=== PATIENT | female | born 1980 | race Caucasian/White ===

== ENCOUNTER 2017-04-15 14:11 | Emergency (ER) | payer OTHER ==
[2017-04-15 14:35] VITALS: BP 99/62
--- NOTE | 2017-04-15 15:26 | UC ---
Lower Extremity/Ankle HPI - HPI Summary HPI Summary: 37 y/o female presents to the urgent care presents to the urgent care c/o Left lateral foot pain s/p falling at work at 1200pm. Pt states she stood up from her desk and she twisted her foot and fell. Pain is 6/10 w/ walking and 2/10 at rest. Mild swelling. She has not taking anything for pain. LMP: 04/11/2017 still with her period today. Pt denies fever, numbness or tingling sensation over her RT foot, SOB, chest pain, N/V/D. - History of Current Complaint Chief Complaint: UCLowerExtremity Stated Complaint: S/P FALL LEFT ANKLE/FOOT W/C Time Seen by Provider: 04/15/17 15:17 Hx Obtained From: Patient Hx Last Menstrual Period: 04/11/17 ?: No Onset/Duration: Sudden Onset, Lasting Hours - 1200N, Still Present Severity Initially: Moderate Severity Currently: Moderate Pain Intensity: 6 - w/ movement Pain Scale Used: 0-10 Numeric Aggravating Factor(s): Standing, Ambulation Alleviating Factor(s): Rest Able to Bear Weight: Yes Related History: Occupational Injury - it happened at work - Risk Factors Gout Risk Factors: Negative DVT Risk Factors: Negative Septic Arthritis Risk Factor: Negative - Allergies/Home Medications Allergies/Adverse Reactions: Allergies Allergy/AdvReac Type Severity Reaction Status Date / Time Penicillins Allergy Severe Anaphylatic Verified 04/15/17 14:35 Shock Home Medications: Home Medications Methylphenidate TAB* [Ritalin TAB*] 54 mg PO DAILY 04/15/17 [History Confirmed 04/15/17] PMH/Surg Hx/FS Hx/Imm Hx Previously Healthy: Yes - Surgical History Surgical History: Yes Surgery Procedure, Year, and Place: APPENDECTOMY. - Family History Known Family History: Positive: Cardiac Disease, Hypertension Family History: kidney stones - Social History Occupation: Employed Full-time Lives: With Family Alcohol Use: None Substance Use Type: None Smoking Status (MU): Never Smoked Tobacco Review of Systems Constitutional: Negative Skin: Negative Eyes: Negative ENT: Negative Respiratory: Negative Cardiovascular: Negative Gastrointestinal: Negative Genitourinary: Negative Motor: Negative Neurovascular: Negative Musculoskeletal: Other: - LF foot pain s/p fall Neurological: Negative Psychological: Negative All Other Systems Reviewed And Are Negative: Yes Physical Exam Triage Information Reviewed: Yes Appearance: Well-Appearing, No Pain Distress, Well-Nourished, Thin Vital Signs: Initial Vital Signs Temp 98.0 F 04/15/17 14:27 Pulse 98 04/15/17 14:27 Resp 12 04/15/17 14:27 BP 99/62 04/15/17 14:27 Vital Signs Reviewed: Yes Eye Exam: Normal Eyes: Positive: Conjunctiva Clear - PERRLA, EOMI ENT Exam: Normal ENT: Positive: Normal ENT inspection, Hearing grossly normal, Pharynx normal, TMs normal Neck exam: Normal Neck: Positive: Supple, Nontender, No Lymphadenopathy Respiratory Exam: Normal Respiratory: Positive: Chest non-tender, Lungs clear, Normal breath sounds Cardiovascular Exam: Normal Cardiovascular: Positive: RRR, No Murmur, Pulses Normal, Brisk Capillary Refill Abdominal Exam: Normal Abdomen Description: Positive: Nontender, No Organomegaly, Soft. Negative: CVA Tenderness (R), CVA Tenderness (L) Bowel Sounds: Positive: Present Musculoskeletal Exam: Normal Musculoskeletal: Positive: Strength Intact, ROM Intact, Other: Neurological Exam: Normal Neurological: Positive: Other: - LF foot: Pt is able to bear weight and ambulate with pain. The L foot is without obvious asymmetry or deformity when compared to the R Foot. Pt can flex/ext, invert/laurence. No obvious surface trauma, ecchymosis,mild soft tissue swelling with tenderdess to palaption over the proximal lateral side LF foot. anterior talofibular ligament, posterior talofibular ligament , calcaneofibular ligament . Nontender and without swelling. Positive capillary refill, sensation intact. Positive reflexes Psychological Exam: Normal Skin Exam: Normal Lower Extremity Course/Dx - Course Course Of Treatment: 37 y/o female presents to the urgent care presents to the urgent care c/o Left lateral foot pain s/p falling at work at 1200pm. Pt states she stood up from her desk and she twisted her foot and fell. Pain is 6/10 w/ walking and 2/10 at rest. Mild swelling. She has not taking anything for pain. LMP: today 04/11/2017. Pt denies fever, numbness or tingling sensation over her RT foot, SOB, chest pain, N/V/D.Hx obtained. LF foot X-ray ordered, Impression : no acute bony abnormality observed. Only mild first MTP osteoarthritis. Pt's RT foot immobilized with rogelio bandage and Rx Ibuprofen PO and Advised RICE. given crutches. To f/u with orthopedic or PCP in 1 week if not improvement of symptoms. Pt understood and agreed and left the clinic ambulating with the crutches. - Differential Dx/Diagnosis Differential Diagnosis/HQI/PQRI: Contusion, Dislocation, Fracture (Closed), Sprain, Strain, Tendonitis Provider Diagnoses: 1- Right Foot ankle pain, possible RT foot sprain Discharge - Discharge Plan Condition: Stable Disposition: HOME Prescriptions: Ibuprofen TAB* [Motrin TAB* 800 MG] 800 mg PO Q6H #20 tab Patient Education Materials: Foot Sprain (ED) Forms: *Work Release Referrals: Surya Sepulveda MD [Primary Care Provider] - 1 Week Ben Jensen MD [Medical Doctor] - 1 Week Additional Instructions: 1-Please take medications as directed to alleviate pain and swelling. Keep foot elevated at night time 2-Please apply ice, keep your thumb immobilized with the rogelio. Use crutches to avoid weight bearing. 3- Please f/u with Orthopedic or your PCP in 1 week is not improvement of symptoms for further evaluation and treatment.
--- NOTE | 2017-04-15 15:48 | RAD ---
INDICATION: Left foot pain COMPARISON: None TECHNIQUE: AP, lateral, and oblique views were obtained. FINDINGS: There is no acute bony change. There is mild first MTP joint osteoarthritis. The bony structures, joint spaces, and soft tissues are otherwise normal. IMPRESSION: NO ACUTE BONY FINDINGS.
== END 2017-04-15 16:09 | disposition home or self-care (01) ==
LOC: UCCORT 14:11
DX: M25.572 Pain in left ankle and joints of left foot (principal); Z88.0 Allergy status to penicillin
CPT/HCPCS: 99213; G0463